=== PATIENT | male | born 1985 | race African-American/Black ===

== ENCOUNTER 2021-12-04 20:27 | Emergency (ER) | END 2021-12-04 21:36 | disposition left against medical advice (07) | LOC: ER 20:44 | DX: R10.9 Unspecified abdominal pain (principal) ==

== ENCOUNTER 2022-06-26 05:45 | Emergency (ER) | payer OTHER ==
[~2022-06-26] VITALS: Ht 172.7 cm; Wt 87.1 kg
[2022-06-26] MEDS ORDERED: SODIUM CHLORIDE 0.9% 1000ML 1,000 ML IV STA (06:11)
[2022-06-26] MEDS ORDERED: FAMOTIDINE 20 MG/2 ML VIAL IV ONE ×2 (06:15→06:39)
[2022-06-26] MEDS ORDERED: ONDANSETRON HCL INJ 2MG/ML 2ML 2 MG/ML VIAL IV ONE (06:15)
[2022-06-26] MEDS ORDERED: ONDANSETRON HCL INJ 2MG/ML 2ML 2 MG/ML VIAL ONE (06:38)
[2022-06-26] MEDS ORDERED: SODIUM CHLORIDE 0.9% 1000ML 1,000 ML ONE (06:38)
[2022-06-26] MEDS ORDERED: FAMOTIDINE20 MG PO (06:42)
[2022-06-26] MEDS ORDERED: ONDANSETRON ODT4 MG PO (06:42)
== END 2022-06-26 08:43 | disposition home or self-care (01) ==
LOC: FSED 06:12
DX: R11.2 Nausea with vomiting, unspecified (principal); K29.70 Gastritis, unspecified, without bleeding; R10.9 Unspecified abdominal pain; G35 Multiple sclerosis
CPT/HCPCS: 74176; 80048; 80076; 83518; 85025; 87400; 96374; 96376; 99284; J2405; J7030

== ENCOUNTER 2022-09-24 12:39 | Emergency (ER) | payer OTHER ==
[~2022-09-24] VITALS: Ht 172.7 cm; Wt 87.1 kg
[~2022-09-24 12:39] MED LIST: FAMOTIDINE20 MG PO; ONDANSETRON ODT4 MG PO
[2022-09-24] MEDS ORDERED: ACETAMINOPHEN 325 MG TAB PO ONE (14:00)
[2022-09-24] MEDS ORDERED: ACETAMINOPHEN 325 MG TAB ONE (14:05)
[2022-09-24] MEDS ORDERED: IBUPROFEN 400 MG TAB PO ONE (14:45)
[2022-09-24] MEDS ORDERED: IBUPROFEN 400 MG TAB ONE (14:50)
[2022-09-24] MEDS ORDERED: PAXLOVID 150-11 EACH PO (15:59)
[2022-09-24] MEDS ORDERED: CORICIDIN COLD1 EACH PO (16:00)
== END 2022-09-24 17:01 | disposition home or self-care (01) ==
LOC: FSED 13:28
DX: R50.9 Fever, unspecified (principal); U07.1 COVID-19; J06.9 Acute upper respiratory infection, unspecified
CPT/HCPCS: 80053; 81003; 85025; 99283

== ENCOUNTER 2022-09-27 13:27 | Emergency (ER) | payer OTHER ==
[~2022-09-27] VITALS: Ht 172.7 cm; Wt 81.6 kg
[~2022-09-27 13:27] MED LIST changes: +CORICIDIN COLD1 EACH PO; +PAXLOVID 150-11 EACH PO
[2022-09-27] MEDS ORDERED: ONDANSETRON HCL INJ 2MG/ML 2ML 2 MG/ML VIAL IV ONE (13:45)
[2022-09-27] MEDS ORDERED: FAMOTIDINE 20 MG/2 ML VIAL IV ONE ×2 (13:45→14:35)
[2022-09-27] MEDS ORDERED: NITROGLYCERIN 2% OINT 1 GM PKT TOP ONE (13:45)
[2022-09-27] MEDS ORDERED: ACETAMINOPHEN 325 MG TAB PO ONE (13:45)
[2022-09-27] MEDS ORDERED: ASPIRIN 325 MG TAB PO ONE (13:45)
[2022-09-27] MEDS ORDERED: ACETAMINOPHEN 325 MG TAB ONE (14:34)
[2022-09-27] MEDS ORDERED: ASPIRIN 325 MG TAB ONE (14:34)
[2022-09-27] MEDS ORDERED: ONDANSETRON HCL INJ 2MG/ML 2ML 2 MG/ML VIAL ONE (14:34)
== END 2022-09-27 14:45 | disposition home or self-care (01) ==
LOC: FSED 13:35
DX: R07.89 Other chest pain (principal); U07.1 COVID-19; R05.9 Cough, unspecified; G35 Multiple sclerosis
CPT/HCPCS: 71046; 80053; 82553; 84484; 85025; 85379; 93005; 99283; J2405